=== PATIENT | female | born 1985 | race Caucasian/White ===

== ENCOUNTER 2020-09-02 13:40 | Emergency (ER) | payer OTHER ==
[~2020-09-02] VITALS: Ht 157.5 cm; Wt 77.1 kg
--- NOTE | 2020-09-02 14:21 | NUR ---
BIBS FROM HOME TO ER BED 12.AAOX4. NOT IN RESP DISTRESS. AMBULATORY. CAME IN FOR C/O NAUSEA, VOMMITING, DIARRHEA, DIFUSED ABD PAIN AND FATIQUE SINCE 08/27/20. PER PT, SHE HAS BEEN HAVING THIS BAOUT OF NAUSEA AND VOMMITNG FOR YEARS BUT THIS EPISODE WAS THE WORST. SHE REPORT THAT SYMPTOMS STARTED 08/27 AND EVER SINCE IT HAS BEEN PROGRESSIVELY GETTING WORST. PT HAVE GONE TO URGENT CARE AND WAS ADVICED THAT SHE HAVE ELEVATED LIVER FUNCTION. AWAITING MD FOR EVAL.
[2020-09-02] MEDS ORDERED: ONDANSETRON HCL/PF 4 MG/2 ML VIAL ONE (15:09)
[2020-09-02 15:13] LABS: BASOPHILS % (AUTO) 0.4 % (0.0-2.0); EOSINOPHILS % (AUTO) 1.2 % (0.0-6.0); HEMATOCRIT 36 % (33-45); HEMOGLOBIN 12.3 g/dL (11.5-14.8); LYMPHOCYTES % (AUTO) 21.5 % (20.0-44.0); MEAN CORPUSCULAR HGB CONC 34 g/dl (31.0-36.0); MEAN CORPUSCULAR VOLUME 86 fL (82-100); MONOCYTES # (AUTO) 0.5 /CMM (0.1-1.30); MONOCYTES % (AUTO) 5.7 % (2.0-12.0); NEUTROPHILS # (AUTO) 6.8 /CMM (1.8-8.9); NEUTROPHILS % (AUTO) 71.2 % (43.0-81.0); PLATELET COUNT (AUTO) 236 /CMM (150-450); RED BLOOD CELL COUNT(AUTO) 4.22 MIL/uL (4.0-5.2); WHITE BLOOD COUNT (AUTO) 9.5 K/uL (4.3-11.0)
[2020-09-02] MEDS: IV NS 0.9% 1,000 ML BAG IV ONE (15:14)
[2020-09-02] MEDS: ONDANSETRON HCL/PF 4 MG/2 ML VIAL IVP ONE (15:14)
--- NOTE | 2020-09-02 15:15 | NUR ---
IV LINE STARTED ON LAC 20G, BLOOD DRAWN, URINE COLLECTED AND GIVEN TO PHLEB. MEDICATED ORDERED
[2020-09-02 15:19] LABS: BILIRUBIN,URINE MODERATE (NEGATIVE); COLOR,URINE YELLOW (YELLOW); LEUKOCYTE ESTERASE ,URINE Negative (NEGATIVE); NITRITE, URINE Negative (NEGATIVE); PH,URINE 5.5 (5.0-8.0); PROTEIN,URINE 30 mg/dl (NEGATIVE); UGLUCOSE Negative (NEGATIVE)
[2020-09-02 15:21] LABS: CALCIUM, SERUM 9.1 mg/dL (8.5-10.1); CARBON DIOXIDE 24 mmol/L (21-32); CHLORIDE 101 mmol/L (98-107); CREATININE 0.8 mg/dL (0.6-1.3); GLUCOSE 95 mg/dL (74-106); POTASSIUM 3.2 mmol/L (3.5-5.1); SODIUM SERUM 137 mmol/L (136-145); UREA NITROGEN, BLOOD 11 mg/dL (7-18)
[2020-09-02 15:28] LABS: ALANINE AMINOTRANSFERASE 31 U/L (12-78); ALBUMIN 3.8 g/dL (3.4-5.0); ALKALINE PHOSPHATASE 63 U/L (46-116); ASPARTATE AMINOTRANSFERASE 13 U/L (15-37); BILIRUBIN,DIRECT 0.1 mg/dL (0.0-0.2); BILIRUBIN,TOTAL 0.4 mg/dL (0.2-1.0); LIPASE 81 U/L (73-393); TOTAL PROTEIN, SERUM 6.8 g/dL (6.4-8.2)
[2020-09-02 15:40] LABS: BACTERIA,URINE Few /HPF (None Seen); MUCUS,URINE Many /LPF (None Seen); SQUAMOUS EPITHELIAL CELL,UR Many /HPF (None Seen)
[2020-09-02] MEDS ORDERED: DOXY1TAB4 PO (16:45)
[2020-09-02 17:10] VITALS: BP 104/48
--- NOTE | 2020-09-02 17:10 | NUR ---
Patient discharged to home in stable condition. Written and verbal after care instructions given. Patient verbalizes understanding of instruction.IV removed. Catheter intact and site benign. Pressure and 4x4 applied to site. No bleeding noted. Pt ambulatory with a steady gait
== END 2020-09-02 17:10 | disposition home or self-care (01) ==
LOC: ER 13:49
DX: O26.891 Other specified pregnancy related conditions, first trimester (principal); R10.84 Generalized abdominal pain; O21.9 Vomiting of pregnancy, unspecified; Z3A.01 Less than 8 weeks gestation of pregnancy
CPT/HCPCS: 36415; 76805; 80048; 80076; 81001; 83605; 83690; 84484; 84702; 84703; 85025; 93005; 96361; 96374; 99285; J2405; J7030